=== PATIENT | male | born 1955 | race Caucasian/White ===

== ENCOUNTER 2018-12-06 13:14 | Inpatient (IN) | payer SELFPAY ==
[~2018-12-06] VITALS: Ht 154.9 cm; Wt 99.8 kg
[~2018-12-06 13:14] MED LIST: ATOR20TA65 PO; CLOP75TA33 PO; LIPITOR; LISI10TA5 PO; METOPROLOL
[2018-12-06] MEDS ORDERED: ASPIRIN 81MG TABLET PO ONE (14:45)
[2018-12-06 14:46] LABS: EOSINOPHILS % 2.1 % (0.0-5.0); HEMATOCRIT. 47.4 % (42.0-52.0); HEMOGLOBIN. 16.7 g/dL (14.0-18.0); LYMPHOCYTES % 28.9 % (20.0-50.0); MEAN CORPUSCULAR HEMOGLOBIN 29.9 pg (28.0-32.0); MEAN PLATELET VOLUME 7.2 fl (7.4-10.4); MONOCYTES % 10.8 % (2.0-8.0); NEUTROPHILS % 57.2 % (40.0-76.0); PLATELET 359 x1000/uL (130-400); RED BLOOD CELL COUNT 5.58 mill/uL (4.7-6.1); RED CELL DISTRIBUTION WIDTH 13.2 % (11.6-14.6)
[2018-12-06 14:51] LABS: CHLORIDE 103 mEq/L (98-107)
[2018-12-06 14:54] LABS: D-DIMER 0.2 mg/L FEU (<0.50); INR 1.1; PARTIAL THROMBOPLASTIN TIME 27.3 sec (23.4-31.0); PROTHROMBIN TIME 11.3 sec (9.6-11.0)
[2018-12-06] MEDS ORDERED: ENOXAPARIN 100MG/ML SYR SUBCUT ONE (17:30)
[2018-12-06] MEDS ORDERED: HYDROCODONE/ACETAMINOPHEN 10/325MG TABLET PO PRN (18:00)
[2018-12-06] MEDS ORDERED: ONDANSETRON HCL 4MG/2ML INJ IV PRN (18:00)
[2018-12-06] MEDS ORDERED: MAGNESIUM/ALUMINUM HYDROXIDE/SIMETHICONE 30ML UDC PO PRN (18:00)
[2018-12-06] MEDS ORDERED: DIPHENHYDRAMINE 50MG/ML VIAL IV PRN (18:00)
[2018-12-06] MEDS ORDERED: NA PHOS,M-B/NA PHOS,DI-BA ENEMA 118ML PR PRN (18:00)
[2018-12-06] MEDS ORDERED: IPRATROPIUM/ALBUTEROL 0.5-3(2.5)MG/3ML NEB INH PRN (18:00)
[2018-12-06] MEDS ORDERED: ACETAMINOPHEN 650MG/20.3ML UDC GT PRN (18:00)
[2018-12-06] MEDS ORDERED: CLOPIDOGREL 75MG TABLET PO SCH (18:00)
[2018-12-06] MEDS ORDERED: DOCUSATE SODIUM 100MG CAPSULE PO PRN (18:00)
[2018-12-06] MEDS ORDERED: POTASSIUM CHLORIDE 20MEQ TABLET SR PO PRN (18:00)
[2018-12-06] MEDS ORDERED: ACETAMINOPHEN 325MG TABLET PO PRN (18:00)
[2018-12-06] MEDS ORDERED: GUAIFENESIN 200MG/10ML SUGAR FREE UDC PO PRN (18:00)
[2018-12-06] MEDS ORDERED: CLONIDINE 0.1MG TABLET PO PRN (18:00)
[2018-12-06] MEDS ORDERED: ACETAMINOPHEN 650MG SUPP PR PRN (18:00)
[2018-12-06] MEDS ORDERED: MORPHINE SULFATE 2 MG/ML CPJ (NOT FOR IM USE) IV PRN (18:30)
[2018-12-06 19:04] LABS: CLARITY URINE CLEAR (CLEAR); COLOR URINE YELLOW (YELLOW); KETONES URINE NEGATIVE (NEGATIVE); LEUKOCYTE ESTERASE URINE NEGATIVE (NEGATIVE); NITRITE URINE NEGATIVE (NEGATIVE); OCCULT BLOOD URINE NEGATIVE (NEGATIVE); PH URINE 6.5 (4.5-8.0); PROTEIN URINE NEGATIVE (NEGATIVE); SPECIFIC GRAVITY URINE 1.009 (1.005-1.030); UROBILINOGEN URINE 0.2 E.U./dL (0.2-1.0)
[2018-12-06 19:13] LABS: CANNABINOID URINE SCREEN NEGATIVE (NEGATIVE); OPIATES URINE SCREEN NEGATIVE (NEGATIVE); PHENCYCLIDINE URINE SCREEN NEGATIVE (NEGATIVE)
[2018-12-06 19:14] LABS: *AMPHETAMINES SCREEN URINE NEGATIVE (NEGATIVE); *BARBITURATES SCREEN URINE NEGATIVE (NEGATIVE); *BENZODIAZEPINES SCREEN URINE NEGATIVE (NEGATIVE); *COCAINE SCREEN URINE NEGATIVE (NEGATIVE); METHADONE URINE SCREEN NEGATIVE (NEGATIVE)
[2018-12-06] MEDS ORDERED: POTASSIUM CHLORIDE 20MEQ TABLET SR PO ONE (20:45)
[2018-12-06] MEDS ORDERED: ATOR40TA70 PO (21:50)
[2018-12-06] MEDS ORDERED: METO-411 MT (21:56)
[2018-12-06] MEDS ORDERED: AMLO5TAB88 PO (21:59)
[2018-12-06 22:00] VITALS: BP 149/104
[2018-12-06 22:15] VITALS: BP 149/104
[2018-12-06] MEDS: CLOPIDOGREL 75MG TABLET PO SCH (22:31)
[2018-12-06] MEDS: SODIUM CHLORIDE 0.9% INJ 3ML FLUSH IVF SCH (22:32)
[2018-12-07] VITALS: BP 114/77
[2018-12-07 00:10] LABS: CREATINE KINASE MB FRACTION 8.7 ng/mL (0.5-3.6)
[2018-12-07] MEDS ORDERED: ENOXAPARIN 80MG/0.8ML SYR SUBCUT ONE (02:30)
[2018-12-07] MEDS ORDERED: ENOXAPARIN 100MG/ML SYR SUBCUT NR (02:45)
[2018-12-07 04:00] VITALS: BP 108/69
[2018-12-07 06:33] LABS: BASOPHILS % 1.3 % (0.0-2.0); EOSINOPHILS % 3.1 % (0.0-5.0); HEMATOCRIT. 44.5 % (42.0-52.0); HEMOGLOBIN. 15.5 g/dL (14.0-18.0); LYMPHOCYTES % 31.7 % (20.0-50.0); MEAN CORPUSCULAR HEMOGLOBIN 29.8 pg (28.0-32.0); MEAN CORPUSCULAR VOLUME 85.3 fL (80.0-94.0); MEAN PLATELET VOLUME 6.8 fl (7.4-10.4); MONOCYTES % 10.2 % (2.0-8.0); NEUTROPHILS % 53.7 % (40.0-76.0); PLATELET 326 x1000/uL (130-400); RED BLOOD CELL COUNT 5.22 mill/uL (4.7-6.1); RED CELL DISTRIBUTION WIDTH 13.1 % (11.6-14.6)
[2018-12-07] MEDS: SODIUM CHLORIDE 0.9% INJ 3ML FLUSH IVF SCH ×3 (06:48→22:15)
[2018-12-07 06:52] LABS: CHLORIDE 107 mEq/L (98-107)
[2018-12-07 07:03] LABS: CREATINE KINASE 227 IU/L (39-308)
[2018-12-07 07:05] LABS: HDL CHOLESTEROL 44 mg/dL (40-59)
[2018-12-07 07:06] LABS: LDL CHOLESTEROL 72 mg/dL (5-100)
[2018-12-07 07:17] LABS: CREATINE KINASE MB FRACTION 7.8 ng/mL (0.5-3.6)
[2018-12-07 08:00] VITALS: BP 134/92
[2018-12-07] MEDS: LISINOPRIL 5MG TABLET PO SCH (08:56)
[2018-12-07] MEDS: CLOPIDOGREL 75MG TABLET PO SCH (08:57)
[2018-12-07] MEDS: METOPROLOL TARTRATE 25MG TABLET PO SCH ×2 (08:57→20:40)
[2018-12-07] MEDS: ASPIRIN 81MG EC TABLET PO SCH (08:57)
[2018-12-07] MEDS: NITROGLYCERIN 0.1MG/HR PATCH TOP SCH (08:59)
[2018-12-07] MEDS ORDERED: ENOXAPARIN 30MG/0.3ML SYR SUBCUT SCH (09:00)
[2018-12-07] MEDS: ENOXAPARIN 100MG/ML SYR SUBCUT SCH ×2 (09:01→20:40)
[2018-12-07 10:40] LABS: CREATINE KINASE MB FRACTION 5.9 ng/mL (0.5-3.6)
[2018-12-07 12:00] VITALS: BP 97/57
[2018-12-07 16:00] VITALS: BP 106/69
[2018-12-07 20:00] VITALS: BP 110/56
[2018-12-07] MEDS: ATORVASTATIN CALCIUM 20MG TABLET PO SCH (20:40)
[2018-12-08] VITALS: BP 95/56
[2018-12-08 04:00] VITALS: BP 102/59
[2018-12-08 08:00] VITALS: BP 118/75
[2018-12-08] MEDS: LISINOPRIL 5MG TABLET PO SCH (08:30)
[2018-12-08] MEDS: ASPIRIN 81MG EC TABLET PO SCH (08:30)
[2018-12-08] MEDS: CLOPIDOGREL 75MG TABLET PO SCH (08:30)
[2018-12-08] MEDS: ENOXAPARIN 100MG/ML SYR SUBCUT SCH ×2 (08:31→22:15)
[2018-12-08] MEDS: METOPROLOL TARTRATE 25MG TABLET PO SCH ×2 (11:15→22:14)
[2018-12-08] MEDS: NITROGLYCERIN 0.1MG/HR PATCH TOP SCH (11:18)
[2018-12-08 12:00] VITALS: BP 123/82
[2018-12-08 12:42] LABS: BASOPHILS % 0.8 % (0.0-2.0); EOSINOPHILS % 0.7 % (0.0-5.0); HEMATOCRIT. 43.9 % (42.0-52.0); HEMOGLOBIN. 15.2 g/dL (14.0-18.0); LYMPHOCYTES % 25.2 % (20.0-50.0); MEAN CORPUSCULAR HEMOGLOBIN 29.7 pg (28.0-32.0); MEAN PLATELET VOLUME 6.7 fl (7.4-10.4); MONOCYTES % 11.9 % (2.0-8.0); NEUTROPHILS % 61.4 % (40.0-76.0); PLATELET 331 x1000/uL (130-400); RED BLOOD CELL COUNT 5.11 mill/uL (4.7-6.1); RED CELL DISTRIBUTION WIDTH 13.4 % (11.6-14.6)
[2018-12-08 12:51] LABS: CHLORIDE 104 mEq/L (98-107)
[2018-12-08] MEDS: SODIUM CHLORIDE 0.9% INJ 3ML FLUSH IVF SCH ×2 (14:22→22:15)
[2018-12-08 16:00] VITALS: BP 116/85
[2018-12-08 20:26] VITALS: BP 162/78
[2018-12-08] MEDS: ATORVASTATIN CALCIUM 20MG TABLET PO SCH (22:14)
[2018-12-09] VITALS: BP 122/78
[2018-12-09 04:00] VITALS: BP 126/86
[2018-12-09] MEDS: SODIUM CHLORIDE 0.9% INJ 3ML FLUSH IVF SCH ×2 (06:14→13:07)
[2018-12-09] MEDS ORDERED: ASPI-1158 PO (07:46)
[2018-12-09] MEDS ORDERED: LISI-186 PO (07:46)
[2018-12-09 08:03] VITALS: BP 135/89
[2018-12-09] MEDS: ASPIRIN 81MG EC TABLET PO SCH (09:34)
[2018-12-09] MEDS: LISINOPRIL 5MG TABLET PO SCH (09:34)
[2018-12-09] MEDS: CLOPIDOGREL 75MG TABLET PO SCH (09:35)
[2018-12-09] MEDS: ENOXAPARIN 100MG/ML SYR SUBCUT SCH (09:35)
[2018-12-09] MEDS: METOPROLOL TARTRATE 25MG TABLET PO SCH (09:35)
[2018-12-09 12:28] VITALS: BP 132/88
[2018-12-09] MEDS: NITROGLYCERIN 0.1MG/HR PATCH TOP SCH (13:06)
[2018-12-09 16:30] VITALS: BP 106/67
[2018-12-09 17:08] VITALS: BP 106/67
== END 2018-12-09 18:25 | disposition home or self-care (01) | DRG 190 ==
LOC: ER 13:14 → 6WST 17:18 → EDBEDREQTM 17:26 → EDBEDREQ 17:26 → ENRESERV 19:40 → CMPBEDREQ 12-07 05:49
PROVIDERS: ADMIT Family Medicine; ATTEND Family Medicine
DX: I21.4 Non-ST elevation (NSTEMI) myocardial infarction (principal); E66.01 Morbid (severe) obesity due to excess calories; I25.118 Atherosclerotic heart disease of native coronary artery with other forms of angina pectoris; I10 Essential (primary) hypertension; E78.5 Hyperlipidemia, unspecified; E78.00 Pure hypercholesterolemia, unspecified; R73.9 Hyperglycemia, unspecified; Z95.5 Presence of coronary angioplasty implant and graft; I25.2 Old myocardial infarction; Z59.9 Problem related to housing and economic circumstances, unspecified; Z79.02 Long term (current) use of antithrombotics/antiplatelets; Z91.19 Patient's noncompliance with other medical treatment and regimen; Z68.41 Body mass index [BMI] 40.0-44.9, adult
CPT/HCPCS: 36415; 71045; 80061; 80305; 82550; 82553; 83880; 84484; 85379; 93005; 93306; 99285; J1200; J1650; J7050